=== PATIENT | male | born 1950 | race Caucasian/White ===

== ENCOUNTER 2024-04-18 16:17 | Inpatient (IN) | payer MEDICARE, BC ==
[~2024-04-18] VITALS: Ht 172.7 cm; Wt 81.6 kg
[2024-04-18] MEDS ORDERED: ONDANSETRON HCL/PF 4 MG/2 ML VIAL ONE (16:48)
[2024-04-18] MEDS ORDERED: MORPHINE SULFATE INJ 4 MG/ML DISP.SYRIN ONE ×2 (16:48→18:31)
[2024-04-18] MEDS: ONDANSETRON HCL/PF 4 MG/2 ML VIAL IVP ONE (16:55)
[2024-04-18] MEDS: MORPHINE SULFATE INJ 2 MG/ML DISP.SYRIN IV ONE ×2 (16:55→18:35)
[2024-04-18] MEDS: IV NS 0.9% 1,000 ML BAG IV ONE (16:55)
[2024-04-18 16:58] LABS: BASOPHILS % (AUTO) 0.5 % (0.0-2.0); EOSINOPHILS % (AUTO) 0.3 % (0.0-6.0); HEMATOCRIT 57 % (39-51); LYMPHOCYTES % (AUTO) 14.9 % (20.0-44.0); MEAN CORPUSCULAR HEMOGLOBIN 32 PG (26.0-33.0); MEAN CORPUSCULAR HGB CONC 33 g/dl (31.0-36.0); MEAN CORPUSCULAR VOLUME 97 fL (80-96); MONOCYTES # (AUTO) 0.2 K/uL (0.1-1.30); MONOCYTES % (AUTO) 2.4 % (2.0-12.0); NEUTROPHILS # (AUTO) 5.4 K/uL (1.8-8.9); NEUTROPHILS % (AUTO) 81.9 % (43.0-81.0); PLATELET COUNT (AUTO) 202 K/uL (150-450); RED BLOOD CELL COUNT(AUTO) 5.89 MIL/uL (4.5-6.0); RED CELL DISTRIBUTION WIDTH 14.2 % (11.5-15.0); WHITE BLOOD COUNT (AUTO) 6.6 K/uL (4.3-11.0)
[2024-04-18 17:28] LABS: CALCIUM, SERUM 8.3 mg/dL (8.5-10.1); CREATININE 1.5 mg/dL (0.6-1.3)
[2024-04-18 17:40] LABS: ALBUMIN 3.9 g/dL (3.4-5.0); BILIRUBIN,DIRECT 0.2 mg/dL (0.0-0.2); BILIRUBIN,TOTAL 0.7 mg/dL (0.2-1.0); TOTAL PROTEIN, SERUM 7.1 g/dL (6.4-8.2)
[2024-04-18 17:49] LABS: ANISOCYTOSIS 1+; BAND % (MANUAL) 8 % (0.0-5.0); EOSINOPHILS % (MANUAL) 1 % (0-4); LYMPHOCYTES % (MANUAL) 21 % (16-48); MONOCYTES % (MANUAL) 5 % (0-11.0); NEUTROPHILS % (MANUAL) 65 (42-76); PLATELET ESTIMATE ADEQUATE; ROULEAUX 1+
[2024-04-18] MEDS ORDERED: KETOROLAC TROMETHAMINE INJ 30 MG/ML VIAL ONE (18:31)
[2024-04-18] MEDS: KETOROLAC TROMETHAMINE INJ 30 MG/ML VIAL IV ONE (18:35)
[2024-04-18] MEDS ORDERED: IV NS 0.9% 250 ML IV ONE (18:46)
[2024-04-18] MEDS ORDERED: IOHEXOL-300 100 ML VIAL IV ONE (18:46)
[2024-04-18] MEDS ORDERED: CEFEPIME 1 GM VIAL ONE (20:42)
[2024-04-18] MEDS ORDERED: HYDROMORPHONE 1 MG/1 ML DISP.SYRIN ONE (20:42)
[2024-04-18] MEDS: CEFEPIME 1 GM in IV D5W 50 ML IV ONE (20:52)
[2024-04-18] MEDS: HYDROMORPHONE 1 MG/1 ML DISP.SYRIN IV ONE (20:52)
[2024-04-18] MEDS ORDERED: Z GUARD REMEDY 4 OZ OINT TP PRN (21:00)
[2024-04-18] MEDS ORDERED: MAGNESIUM HYDROXIDE 30 ML UDC PO PRN (21:00)
[2024-04-18] MEDS ORDERED: ZOLPIDEM TARTRATE 5 MG TABLET PO PRN (21:00)
[2024-04-18] MEDS ORDERED: ACETAMINOPHEN 325 MG TABLET PO PRN (21:00)
[2024-04-18] MEDS ORDERED: HYDROMORPHONE 1 MG/1 ML DISP.SYRIN IV PRN (21:00)
[2024-04-18] MEDS ORDERED: MAG HYDROX/AL HYDROX/SIMETH 30 ML UDC PO PRN (21:00)
[2024-04-18] MEDS: IV NS 0.9% 1,000 ML IV PRN (22:28)
[2024-04-19] VITALS (43 sets, daily range): BP systolic 0–184; BP diastolic 60–110; TEMP 97.7–99.4; O2SAT 94–100
[2024-04-19] MEDS: HYDROMORPHONE 1 MG/1 ML DISP.SYRIN IV PRN ×4 (00:24→23:48)
[2024-04-19] MEDS ORDERED: ATEN100T PO (08:01)
[2024-04-19] MEDS ORDERED: ROSU40TA PO (08:01)
[2024-04-19] MEDS ORDERED: ESZO2TAB31 PO (08:01)
[2024-04-19] MEDS ORDERED: CYAN-51 PO (08:01)
[2024-04-19] MEDS ORDERED: ASPI-1169 PO (08:01)
[2024-04-19] MEDS ORDERED: ESCI10TA PO (08:01)
[2024-04-19 09:59] LABS: EOSINOPHILS % (AUTO) 0.1 % (0.0-6.0); HEMATOCRIT 51 % (39-51); LYMPHOCYTES # (AUTO) 0.3 K/uL (0.8-4.8); MEAN CORPUSCULAR HEMOGLOBIN 32 PG (26.0-33.0); MEAN CORPUSCULAR HGB CONC 33 g/dl (31.0-36.0); MEAN CORPUSCULAR VOLUME 97 fL (80-96); MONOCYTES # (AUTO) 0.5 K/uL (0.1-1.30); MONOCYTES % (AUTO) 7.8 % (2.0-12.0); NEUTROPHILS # (AUTO) 5.9 K/uL (1.8-8.9); NEUTROPHILS % (AUTO) 87.1 % (43.0-81.0); PLATELET COUNT (AUTO) 142 K/uL (150-450); RED BLOOD CELL COUNT(AUTO) 5.25 MIL/uL (4.5-6.0); RED CELL DISTRIBUTION WIDTH 14.4 % (11.5-15.0); WHITE BLOOD COUNT (AUTO) 6.8 K/uL (4.3-11.0)
[2024-04-19] MEDS: IV NS 0.9% 500 ML IV ONE (10:03)
[2024-04-19 10:09] LABS: CALCIUM, SERUM 7.5 mg/dL (8.5-10.1); CARBON DIOXIDE 20 mmol/L (21-32); CHLORIDE 111 mmol/L (98-107); CREATININE 1.9 mg/dL (0.6-1.3); GLUCOSE 107 mg/dL (74-106); POTASSIUM 5.1 mmol/L (3.5-5.1); SODIUM SERUM 141 mmol/L (136-145); UREA NITROGEN, BLOOD 35 mg/dL (7-18)
[2024-04-19 10:32] LABS: LACTIC ACID 2.6 mmol/L (0.4-2.0)
[2024-04-19] MEDS: METRONIDAZOLE 500MG/ NS 100ML 500 MG in PREMIX 1 EA IV SCH (10:57)
[2024-04-19 11:33] LABS: MAGNESIUM 1.6 mg/dL (1.8-2.4); PHOSPHORUS 3.8 mg/dL (2.5-4.9)
[2024-04-19] MEDS: IV NS 0.9% 1,000 ML IV PRN (12:00)
[2024-04-19] MEDS: NOREPINEPHRINE 8 MG in IV D5W 242 ML IV PRN (13:00)
[2024-04-19] MEDS ORDERED: HYDROMORPHONE INJ SYRINGE 1 MG in IV D5W 50 ML IV PRN (13:00)
[2024-04-19] MEDS: CEFEPIME 2 GM in IV D5W 100 ML IV SCH (15:01)
[2024-04-19] MEDS ORDERED: BACITRACIN ZINC OINT (15 GM) 15 GM TUBE TP ONE (16:24)
[2024-04-19] MEDS ORDERED: LIDOCAINE 1%-EPI 1:100,000 20 ML VIAL ONE (16:24)
[2024-04-19] MEDS ORDERED: BUPIVACAINE 0.5 % PF 150 MG/30 ML VIAL ONE (16:24)
[2024-04-19] MEDS ORDERED: FENTANYL PF 100MCG/2ML AMPUL ONE (17:35)
[2024-04-19] MEDS ORDERED: ROCURONIUM BROMIDE 50 MG/5 ML ONE (17:35)
[2024-04-19] MEDS ORDERED: FENTANYL PF 250MCG/5ML AMPUL ONE (17:35)
[2024-04-19] MEDS ORDERED: ROPIVACAINE HCL 0.5% 5 MG/ML 30ML VIAL ONE (18:08)
[2024-04-19] MEDS ORDERED: CEFEPIME 1 GM in IV D5W 50 ML IV SCH (21:00)
[2024-04-19] MEDS: PROPOFOL 100 ML ONE (22:05)
[2024-04-19] MEDS: PROPOFOL 10MG/ML 50ML 50 ML IV PRN (22:07)
[2024-04-19 22:29] LABS: ABG BASE EXCESS -13.3 mmol/L (-2.0-3.0); ABG OXYGEN SATURATION 93.1 % (94.0-98.0); ABG PCO2 45.8 mmHg (35.0-48.0); ABG PH 7.146 (7.350-7.450); ABG PO2 79.1 mmHg (83.0-108.0); ABG TOTAL HEMOGLOBIN 17.6 G/dL (13.5-17.5); COHb 0.9 % (0.5-1.5); MetHb 0.3 % (0.0-1.5); PEEP,BG 5 cm H2O; SITE, ABG RIGHT RADIAL; VT, ABG 550 mL
[2024-04-19] MEDS ORDERED: PHENYLEPHRINE 100 MG in IV NS 0.9% 240 ML IV PRN (23:00)
[2024-04-19] MEDS: SODIUM BICARBONATE SYR 50 MEQ/50 ML DISP.SYRIN ONE (23:19)
[2024-04-19] MEDS: SODIUM BICARBONATE SYR 100 MEQ in IV D5/0.45 NACL 1,000 ML IV PRN (23:33)
[2024-04-20] VITALS (65 sets, daily range): BP systolic 68–143; BP diastolic 52–82; TEMP 97.5–98.7; O2SAT 94–100
[2024-04-20] MEDS: METRONIDAZOLE 500MG/ NS 100ML 100 ML IV ONE (03:01)
[2024-04-20 05:04] LABS: BASOPHILS % (AUTO) 0.1 % (0.0-2.0); EOSINOPHILS % (AUTO) 0.1 % (0.0-6.0); HEMATOCRIT 44 % (39-51); HEMOGLOBIN 15.3 g/dL (13.5-17.5); LYMPHOCYTES # (AUTO) 0.5 K/uL (0.8-4.8); LYMPHOCYTES % (AUTO) 6.3 % (20.0-44.0); MEAN CORPUSCULAR HEMOGLOBIN 33 PG (26.0-33.0); MEAN CORPUSCULAR HGB CONC 35 g/dl (31.0-36.0); MEAN CORPUSCULAR VOLUME 96 fL (80-96); MONOCYTES # (AUTO) 0.4 K/uL (0.1-1.30); MONOCYTES % (AUTO) 4.3 % (2.0-12.0); NEUTROPHILS # (AUTO) 7.4 K/uL (1.8-8.9); NEUTROPHILS % (AUTO) 89.2 % (43.0-81.0); PLATELET COUNT (AUTO) 142 K/uL (150-450); RED BLOOD CELL COUNT(AUTO) 4.63 MIL/uL (4.5-6.0); RED CELL DISTRIBUTION WIDTH 14.9 % (11.5-15.0); WHITE BLOOD COUNT (AUTO) 8.3 K/uL (4.3-11.0)
[2024-04-20 05:17] LABS: ALBUMIN 1.9 g/dL (3.4-5.0); BILIRUBIN,TOTAL 0.7 mg/dL (0.2-1.0); CALCIUM, SERUM 6.5 mg/dL (8.5-10.1); CREATININE 1.6 mg/dL (0.6-1.3); MAGNESIUM 1.7 mg/dL (1.8-2.4); PHOSPHORUS 2.4 mg/dL (2.5-4.9); POTASSIUM 4.9 mmol/L (3.5-5.1); TOTAL PROTEIN, SERUM 4.7 g/dL (6.4-8.2)
[2024-04-20 07:11] LABS: LYMPHOCYTES % (MANUAL) 6 % (16-48); MONOCYTES % (MANUAL) 2 % (0-11.0); NEUTROPHILS % (MANUAL) 92 (42-76); PLATELET ESTIMATE DECREASED
[2024-04-20 07:12] LABS: ANISOCYTOSIS 1+
[2024-04-20] MEDS ORDERED: DC PROPOFOL WHEN EXTUBATED XX PRN ×2 (08:00→10:00)
[2024-04-20] MEDS: PANTOPRAZOLE 40 MG VIAL IV SCH (08:07)
[2024-04-20] MEDS ORDERED: Magnesium 1GM/D5W 100ML PREMIX 100 ML IV SCH (08:30)
[2024-04-20] MEDS: Sodium Phosphate 30 MMOL in IV NS 0.9% 250 ML IV SCH (09:29)
[2024-04-20] MEDS: Magnesium 1GM/D5W 100ML PREMIX 100 ML IV SCH (09:40)
[2024-04-20 09:57] LABS: ABG BASE EXCESS -4.1 mmol/L (-2.0-3.0); ABG OXYGEN SATURATION 96.7 % (94.0-98.0); ABG PCO2 33.4 mmHg (35.0-48.0); ABG PH 7.391 (7.350-7.450); ABG PO2 81.2 mmHg (83.0-108.0); ABG TOTAL HEMOGLOBIN 15.5 G/dL (13.5-17.5); COHb 0.9 % (0.5-1.5); MetHb 0.2 % (0.0-1.5); O2Hb 95.6 % (94.0-97.0); SITE, ABG RIGHT RADIAL; VT, ABG 550 mL
[2024-04-20] MEDS: ENOXAPARIN SODIUM 30 MG/0.3 ML DISP.SYRIN SQ SCH (10:51)
[2024-04-20] MEDS ORDERED: Sodium Bicarbonate 100 MEQ in IV D5/0.45 NACL 1,000 ML IV SCH (11:00)
[2024-04-20] MEDS: IV NS 0.9% 1,000 ML IV PRN (12:00)
[2024-04-20] MEDS ORDERED: TOBR5DRO46 LEFTEYE (12:43)
[2024-04-20] MEDS: TOBRAMYCIN/DEXAMETH OPHTH DORPS 2.5 ML BOTTLE LEFTEYE SCH (13:00)
[2024-04-20] MEDS: METOPROLOL TARTRATE INJ 5 MG/5 ML AMPUL IVP ONE (22:08)
[2024-04-21] VITALS (36 sets, daily range): BP systolic 93–146; BP diastolic 58–96; TEMP 97.8–98.5; O2SAT 94–98
[2024-04-21 04:33] LABS: HEMATOCRIT 41 % (39-51); HEMOGLOBIN 13.6 g/dL (13.5-17.5); LYMPHOCYTES # (AUTO) 0.3 K/uL (0.8-4.8); LYMPHOCYTES % (AUTO) 4.6 % (20.0-44.0); MEAN CORPUSCULAR HEMOGLOBIN 32 PG (26.0-33.0); MEAN CORPUSCULAR HGB CONC 34 g/dl (31.0-36.0); MEAN CORPUSCULAR VOLUME 97 fL (80-96); MONOCYTES # (AUTO) 0.3 K/uL (0.1-1.30); MONOCYTES % (AUTO) 5.4 % (2.0-12.0); NEUTROPHILS # (AUTO) 5.9 K/uL (1.8-8.9); PLATELET COUNT (AUTO) 104 K/uL (150-450); RED BLOOD CELL COUNT(AUTO) 4.21 MIL/uL (4.5-6.0); RED CELL DISTRIBUTION WIDTH 14.8 % (11.5-15.0); WHITE BLOOD COUNT (AUTO) 6.5 K/uL (4.3-11.0)
[2024-04-21 04:56] LABS: ALBUMIN 1.7 g/dL (3.4-5.0); BILIRUBIN,TOTAL 0.6 mg/dL (0.2-1.0); CALCIUM, SERUM 6.6 mg/dL (8.5-10.1); CREATININE 1.3 mg/dL (0.6-1.3); MAGNESIUM 2.2 mg/dL (1.8-2.4); PHOSPHORUS 2.3 mg/dL (2.5-4.9); POTASSIUM 4.3 mmol/L (3.5-5.1); TOTAL PROTEIN, SERUM 4.8 g/dL (6.4-8.2)
[2024-04-21] MEDS: HYDROMORPHONE 1 MG/1 ML DISP.SYRIN IV ONE (06:57)
[2024-04-21] MEDS: METOPROLOL TARTRATE INJ 5 MG/5 ML AMPUL IVP ONE (06:58)
[2024-04-21 07:05] LABS: LYMPHOCYTES % (MANUAL) 5 % (16-48); MONOCYTES % (MANUAL) 3 % (0-11.0); NEUTROPHILS % (MANUAL) 92 (42-76); PLATELET ESTIMATE DECREASED
[2024-04-21 08:06] LABS: PTH, INTACT 191 pg/mL (15-65)
[2024-04-21] MEDS: ENOXAPARIN SODIUM 40 MG/0.4 ML DISP.SYRIN SQ SCH (08:37)
[2024-04-21] MEDS ORDERED: AMIODARONE 450 MG in IV D5W 250 ML IV PRN (09:30)
[2024-04-21] MEDS: AMIODARONE 150 MG in IV D5W 100 ML IV ONE (10:01)
[2024-04-21] MEDS: AMIODARONE 450 MG in IV D5W 241 ML IV PRN (10:36)
[2024-04-21] MEDS ORDERED: IV NS 0.9% 1,000 ML BAG IV PRN (13:30)
[2024-04-21] MEDS: POTASSIUM PHOSPHATE MM 7.5 MMOL in IV NS 0.9% 100 ML IV SCH (13:54)
[2024-04-21 15:09] LABS: *SPE ALPHA-1-GLOBULIN 0.3 g/dL (0.0-0.4); *SPE ALPHA-2-GLOBULIN 0.6 g/dL (0.4-1.0); *SPE BETA GLOBULIN 0.5 g/dL (0.7-1.3); *SPE GLOBULIN, TOTAL 2.1 g/dL (2.2-3.9); *SPE M-SPIKE Not Observed g/dL (Not Observed); *SPE PROTEIN TOTAL 4.1 g/dL (6.0-8.5); *SPEGAMMA GLOBULIN 0.7 g/dL (0.4-1.8)
[2024-04-21] MEDS: IV NS 0.9% 1,000 ML IV PRN (15:47)
[2024-04-21] MEDS: ESCITALOPRAM OXALATE (10 MG) 10 MG TABLET PO SCH (21:18)
[2024-04-22] VITALS: BP 130/74; TEMP 98.4; O2SAT 96
[2024-04-22 04:00] VITALS: BP 121/89; TEMP 98.2; O2SAT 96
[2024-04-22 07:54] LABS: EOSINOPHILS % (AUTO) 0.1 % (0.0-6.0); HEMATOCRIT 39 % (39-51); HEMOGLOBIN 13.4 g/dL (13.5-17.5); LYMPHOCYTES # (AUTO) 0.5 K/uL (0.8-4.8); LYMPHOCYTES % (AUTO) 4.8 % (20.0-44.0); MEAN CORPUSCULAR HEMOGLOBIN 33 PG (26.0-33.0); MEAN CORPUSCULAR HGB CONC 34 g/dl (31.0-36.0); MEAN CORPUSCULAR VOLUME 97 fL (80-96); MONOCYTES # (AUTO) 0.6 K/uL (0.1-1.30); NEUTROPHILS # (AUTO) 8.5 K/uL (1.8-8.9); NEUTROPHILS % (AUTO) 89.1 % (43.0-81.0); PLATELET COUNT (AUTO) 124 K/uL (150-450); RED BLOOD CELL COUNT(AUTO) 4.05 MIL/uL (4.5-6.0); RED CELL DISTRIBUTION WIDTH 15.1 % (11.5-15.0); WHITE BLOOD COUNT (AUTO) 9.5 K/uL (4.3-11.0)
[2024-04-22 08:00] VITALS: BP 132/99; TEMP 98.4; O2SAT 96
[2024-04-22] MEDS: ONDANSETRON HCL/PF 4 MG/2 ML VIAL IVP PRN (10:42)
[2024-04-22 12:00] VITALS: BP 135/104; TEMP 97.7; O2SAT 89
[2024-04-22 12:21] LABS: ALBUMIN 1.8 g/dL (3.4-5.0); BILIRUBIN,TOTAL 0.8 mg/dL (0.2-1.0); CREATININE 1.1 mg/dL (0.6-1.3); MAGNESIUM 2.2 mg/dL (1.8-2.4); PHOSPHORUS 1.5 mg/dL (2.5-4.9); TOTAL PROTEIN, SERUM 5.2 g/dL (6.4-8.2)
[2024-04-22 16:00] VITALS: BP 132/97; TEMP 98; O2SAT 93
[2024-04-22] MEDS: Sodium Phosphate 15 MMOL in IV NS 0.9% 245 ML IV SCH (18:49)
[2024-04-22 20:00] VITALS: BP 143/92; TEMP 98.2; O2SAT 94
[2024-04-22] MEDS: ESCITALOPRAM OXALATE (10 MG) 10 MG TABLET PO SCH (20:23)
[2024-04-22] MEDS: LORAZEPAM 1 MG TABLET PO SCH (20:24)
[2024-04-22] MEDS ORDERED: LORAZEPAM 1 MG TABLET PO SCH ×2 (21:00→22:00)
[2024-04-23] VITALS: BP 140/88; TEMP 98.1; O2SAT 98
[2024-04-23 04:00] VITALS: BP 148/98; TEMP 98.1; O2SAT 96
[2024-04-23 08:00] VITALS: BP 132/103; TEMP 97.7; O2SAT 97
[2024-04-23 08:03] LABS: CALCIUM, SERUM 7.3 mg/dL (8.5-10.1); PHOSPHORUS 1.6 mg/dL (2.5-4.9); POTASSIUM 3.4 mmol/L (3.5-5.1)
[2024-04-23] MEDS: K PHOS NEUTRAL 250 MG TABLET PO SCH (09:07)
[2024-04-23] MEDS: PANTOPRAZOLE 40 MG/PACK PACK NG SCH (09:48)
[2024-04-23] MEDS: FUROSEMIDE 20 MG/2 ML VIAL IV SCH (09:50)
[2024-04-23] MEDS: AMIODARONE HCL 200 MG TABLET PO SCH (09:52)
[2024-04-23] MEDS: POTASSIUM CL. PREMIX PERIPHER. 50 ML IV SCH (09:53)
[2024-04-23] MEDS: ESCITALOPRAM OXALATE (10 MG) 10 MG TABLET PO SCH ×2 (11:00→22:12)
[2024-04-23] MEDS ORDERED: Medication Not On Formulary EA (Eszopiclone 2 MG) PO PRN (11:00)
[2024-04-23] MEDS: ASPIRIN 81 MG TAB.CHEW PO SCH (11:16)
[2024-04-23 12:00] VITALS: BP 116/85; TEMP 97.5; O2SAT 96
[2024-04-23] MEDS: TOBRAMYCIN/DEXAMETH OPHTH SUSP 5 ML BOTTLE LEFTEYE SCH (13:29)
[2024-04-23 16:00] VITALS: BP 120/100; TEMP 98.2; O2SAT 96
[2024-04-23] MEDS: chlorproMAZINE HCL 25 MG TABLET PO SCH (18:42)
[2024-04-23 20:00] VITALS: BP 124/100; TEMP 98.2; O2SAT 95
[2024-04-23] MEDS: ACETAMINOPHEN 325 MG TABLET PO SCH (21:01)
[2024-04-23] MEDS: GABAPENTIN 100 MG CAPSULE PO SCH (21:01)
[2024-04-23] MEDS: LORAZEPAM 1 MG TABLET PO SCH (22:11)
[2024-04-23] MEDS: ATORVASTATIN 40 MG TABLET PO SCH (22:12)
[2024-04-24 00:05] VITALS: BP 122/93; TEMP 98.8; O2SAT 95
[2024-04-24 04:00] VITALS: BP 126/94; TEMP 98.2; O2SAT 95
[2024-04-24 07:30] LABS: EOSINOPHILS % (AUTO) 0.6 % (0.0-6.0); HEMATOCRIT 43 % (39-51); HEMOGLOBIN 14.9 g/dL (13.5-17.5); LYMPHOCYTES # (AUTO) 0.5 K/uL (0.8-4.8); LYMPHOCYTES % (AUTO) 8.7 % (20.0-44.0); MEAN CORPUSCULAR HEMOGLOBIN 33 PG (26.0-33.0); MEAN CORPUSCULAR HGB CONC 34 g/dl (31.0-36.0); MEAN CORPUSCULAR VOLUME 95 fL (80-96); MONOCYTES # (AUTO) 0.6 K/uL (0.1-1.30); MONOCYTES % (AUTO) 10.6 % (2.0-12.0); NEUTROPHILS # (AUTO) 4.4 K/uL (1.8-8.9); NEUTROPHILS % (AUTO) 80.1 % (43.0-81.0); PLATELET COUNT (AUTO) 148 K/uL (150-450); RED BLOOD CELL COUNT(AUTO) 4.59 MIL/uL (4.5-6.0); RED CELL DISTRIBUTION WIDTH 14.7 % (11.5-15.0); WHITE BLOOD COUNT (AUTO) 5.4 K/uL (4.3-11.0)
[2024-04-24 08:00] VITALS: BP 122/72; TEMP 98; O2SAT 93
[2024-04-24 08:01] LABS: ALBUMIN 1.8 g/dL (3.4-5.0); BILIRUBIN,TOTAL 0.9 mg/dL (0.2-1.0); CALCIUM, SERUM 7.8 mg/dL (8.5-10.1); CREATININE 1.2 mg/dL (0.6-1.3); POTASSIUM 3.4 mmol/L (3.5-5.1)
[2024-04-24] MEDS: CYANOCOBALAMIN 500 MCG TABLET PO SCH (08:41)
[2024-04-24] MEDS: ATENOLOL 50 MG TABLET PO SCH (08:42)
[2024-04-24] MEDS: CELECOXIB 100 MG CAPSULE PO SCH (08:42)
[2024-04-24 10:13] LABS: LYMPHOCYTES % (MANUAL) 11 % (16-48); MONOCYTES % (MANUAL) 14 % (0-11.0); NEUTROPHILS % (MANUAL) 75 (42-76)
[2024-04-24 10:14] LABS: ANISOCYTOSIS 1+; PLATELET ESTIMATE DECREASED
[2024-04-24] MEDS ORDERED: FUROSEMIDE 20 MG/2 ML VIAL IV SCH (11:00)
[2024-04-24] MEDS: POTASSIUM CHLORIDE 20 MEQ TAB.PRT.SR PO SCH (11:42)
[2024-04-24] MEDS: POTASSIUM CHLORIDE 20 MEQ POWDER PACKET NG SCH (11:42)
[2024-04-24] MEDS: FUROSEMIDE 20 MG/2 ML VIAL IV ONE (11:42)
[2024-04-24 12:00] VITALS: BP 116/83; TEMP 98.6; O2SAT 96
[2024-04-24] MEDS: DIGOXIN INJ 0.5 MG/2 ML AMPUL IV SCH (12:21)
[2024-04-24 16:00] VITALS: BP 109/58; TEMP 97.7; O2SAT 96
[2024-04-24 20:00] VITALS: BP 111/72; TEMP 97.9; O2SAT 96
[2024-04-25] VITALS: BP 87/63; TEMP 97.8; O2SAT 95
[2024-04-25 04:00] VITALS: BP 96/65; TEMP 98.1; O2SAT 93
[2024-04-25 07:36] LABS: BASOPHILS % (AUTO) 0.2 % (0.0-2.0); EOSINOPHILS # (AUTO) 0.1 K/uL (0.0-0.7); HEMATOCRIT 42 % (39-51); HEMOGLOBIN 14.1 g/dL (13.5-17.5); LYMPHOCYTES # (AUTO) 0.6 K/uL (0.8-4.8); LYMPHOCYTES % (AUTO) 9.1 % (20.0-44.0); MEAN CORPUSCULAR HEMOGLOBIN 32 PG (26.0-33.0); MEAN CORPUSCULAR HGB CONC 34 g/dl (31.0-36.0); MEAN CORPUSCULAR VOLUME 95 fL (80-96); MONOCYTES # (AUTO) 0.4 K/uL (0.1-1.30); MONOCYTES % (AUTO) 6.5 % (2.0-12.0); NEUTROPHILS # (AUTO) 5.6 K/uL (1.8-8.9); NEUTROPHILS % (AUTO) 82.2 % (43.0-81.0); PLATELET COUNT (AUTO) 146 K/uL (150-450); RED BLOOD CELL COUNT(AUTO) 4.38 MIL/uL (4.5-6.0); RED CELL DISTRIBUTION WIDTH 14.6 % (11.5-15.0); WHITE BLOOD COUNT (AUTO) 6.8 K/uL (4.3-11.0)
[2024-04-25 07:48] LABS: CALCIUM, SERUM 7.6 mg/dL (8.5-10.1); CREATININE 1.1 mg/dL (0.6-1.3); PHOSPHORUS 3.3 mg/dL (2.5-4.9); POTASSIUM 3.3 mmol/L (3.5-5.1)
[2024-04-25 08:00] VITALS: BP 95/72; TEMP 97.7; O2SAT 93
[2024-04-25 09:01] LABS: EOSINOPHILS % (MANUAL) 4 % (0-4); LYMPHOCYTES % (MANUAL) 11 % (16-48); MONOCYTES % (MANUAL) 13 % (0-11.0); MYELOCYTES % 2 % (0-0)
[2024-04-25 09:02] LABS: NEUTROPHILS % (MANUAL) 70 (42-76); PLATELET ESTIMATE DECREASED
[2024-04-25] MEDS: APIXABAN 5 MG TABLET PO SCH (09:30)
[2024-04-25] MEDS: METOPROLOL TARTRATE 50 MG TABLET PO SCH (09:30)
[2024-04-25] MEDS: POTASSIUM CHLORIDE 20 MEQ TAB.PRT.SR PO ONE ×2 (11:00→12:17)
[2024-04-25 12:00] VITALS: BP 90/70; TEMP 97.2; O2SAT 93
[2024-04-25 16:00] VITALS: BP 120/70; TEMP 97.3; O2SAT 94
[2024-04-25 20:00] VITALS: BP 97/63; TEMP 97.5; O2SAT 96
[2024-04-26] VITALS: BP 120/79; TEMP 98.1; O2SAT 95
[2024-04-26 04:00] VITALS: BP 104/67; TEMP 98.2; O2SAT 95
[2024-04-26 07:35] LABS: CALCIUM, SERUM 7.5 mg/dL (8.5-10.1); POTASSIUM 3.6 mmol/L (3.5-5.1)
[2024-04-26] MEDS: CALCITRIOL 0.25 MCG CAPSULE PO SCH (09:07)
[2024-04-26 09:57] VITALS: O2SAT 92
[2024-04-26 12:00] VITALS: BP 111/73; TEMP 97.3; O2SAT 96
[2024-04-26] MEDS ORDERED: CELE100C PO (12:02)
[2024-04-26] MEDS ORDERED: APIX5TAB PO (12:02)
[2024-04-26] MEDS ORDERED: CHLO25TA13 PO (12:02)
[2024-04-26] MEDS ORDERED: CALC0.258 PO (12:02)
[2024-04-26 16:00] VITALS: BP 120/70; TEMP 97.3; O2SAT 96
== END 2024-04-27 | disposition home health service (06) | DRG 329 ==
LOC: ER 16:23 → MED 21:50 → ICU 04-19 11:34 → TELE-TD 04-21 21:34 → TELE1 04-23 11:08 → MEDSG1 04-26 14:45
PROVIDERS: ADMIT Nurse Practitioner Acute Care; ATTEND Nurse Practitioner Family
PROC: 0DBN0ZZ Excision of Sigmoid Colon, Open Approach (ICD-10-PCS; principal; 2024-04-19)
PROC: 0DNU0ZZ Release Omentum, Open Approach (ICD-10-PCS; 2024-04-19)
PROC: 0D1N0Z4 Bypass Sigmoid Colon to Cutaneous, Open Approach (ICD-10-PCS; 2024-04-19)
PROC: 0DTJ0ZZ Resection of Appendix, Open Approach (ICD-10-PCS; 2024-04-19)
PROC: 0WQF0ZZ Repair Abdominal Wall, Open Approach (ICD-10-PCS; 2024-04-19)
PROC: 02HV33Z Insertion of Infusion Device into Superior Vena Cava, Percutaneous Approach (ICD-10-PCS; 2024-04-19)
PROC: B548ZZA Ultrasonography of Superior Vena Cava, Guidance (ICD-10-PCS; 2024-04-19)
DX: K57.20 Diverticulitis of large intestine with perforation and abscess without bleeding (principal); J96.00 Acute respiratory failure, unspecified whether with hypoxia or hypercapnia; K65.9 Peritonitis, unspecified; N17.0 Acute kidney failure with tubular necrosis; K42.0 Umbilical hernia with obstruction, without gangrene; E87.20 Acidosis, unspecified; Z79.899 Other long term (current) drug therapy; K66.0 Peritoneal adhesions (postprocedural) (postinfection); M89.8X9 Other specified disorders of bone, unspecified site; K21.9 Gastro-esophageal reflux disease without esophagitis; E86.9 Volume depletion, unspecified; E83.42 Hypomagnesemia; I48.91 Unspecified atrial fibrillation; E83.39 Other disorders of phosphorus metabolism; N18.9 Chronic kidney disease, unspecified; E83.51 Hypocalcemia; Z86.79 Personal history of other diseases of the circulatory system
CPT/HCPCS: 31720; 36415; 36569; 36600; 71045-TC; 74018; 76770-TC; 80048-TC; 80053-TC; 80076-TC; 82306; 82550-TC; 82803-TC; 83605-TC; 83690-TC; 83735-TC; 83970; 84100-TC; 84155; 84165; 85025-TC; 88304-TC; 88307-TC; 93307-TC; 94002-TC; 94760-TC; 94762-TC; 94799-TC; 97110-TC; 97116-TC; 97530-TC; A4216; A4223; A9563; G0378; J0282; J0330; J0690; J0692; J1160; J1171; J1650; J1885; J1940; J2270; J2405; J2470; J2704; J2795; J3010; J3475; J3480; J3490; J7030; J7040; J7050; J7060; Q0161; Q9967